=== PATIENT | female | born 1950 | race Native Hawaiian/Other Pacific Islander ===

== ENCOUNTER 2020-03-30 10:11 | Day surgery (SDC) | payer MEDICARE, BC ==
[~2020-03-30] VITALS: Ht 152.4 cm; Wt 65.9 kg
[~2020-03-30 10:11] MED LIST: ATEN25 PO; BUPR150ER PO; Hair, Skin & N1 EACH PO; LOSA50 PO; Omeprazole20 M1 PO; PANT20 PO; PEPCID20 MG PO; TRAM50 PO; ZOLP5 PO
[2020-03-30] MEDS ORDERED: OMEP20ER PO (10:34)
[2020-03-30] MEDS ORDERED: ALLEGRA ALLERG180 MG PO (10:35)
[2020-03-30] MEDS ORDERED: CHLO4 PO (10:35)
--- NOTE | 2020-03-30 12:10 | NUR ---
03/30/20 1210 Dora Lewis 600CC NACL FLUID DEFICIT FROM HYSTEROSCOPY. SURGEON AND ANESTHESIA AWARE.
--- NOTE | 2020-03-30 13:07 | NUR ---
03/30/20 1307 DORA NICOLE PT TO STEP DOWN. VSS ON ROOM AIR. PT WOULD LIKE TO USE RESTROOM, SHE WAS EDUCATED THAT SHE MAY FEEL LIKE SHE NEEDS TO VOID DUE TO THE IRRITATION TO THE [place]RA. SHE WAS ASSISED TO THE BATHROOM AND VOIDED A SMALL AMOUNT OF URINE AND SOME BRIGHT, RED BLOOD. PT THEN BACK TO RECLINER IN STE[place]OWN. PT REPORTS HER VAGINAL AREA IS "VERY SORE" SHE WAS OFFERED BOTH ORAL AND IV PAIN MEDICATION BUT REFUSES DUE TO FEAR ODF NAUSEA. SHE WAS EDUCATED THAT SHE WAS ALREADY GIVEN THIS MEDICINE (IV - INTRA OPERATIVELY) WITH NO NAUSEA POST OPERATIVELY BUT AGAIN DECLINES. PT EDUCATED ON DC TEACHING AND ALL QUESTIONS ASKED AND ANSWERED. IV DC'D AND PT TO VEHICLE VIA
== END 2020-03-30 13:04 | disposition home or self-care (01) ==
LOC: ORSCSDS 10:11
PROVIDERS: Obstetrics & Gynecology
PROC: 0UDB8ZX Extraction of Endometrium, Via Natural or Artificial Opening Endoscopic, Diagnostic (ICD-10-PCS; principal; 2020-03-30 11:15)
DX: N95.0 Postmenopausal bleeding (principal); N85.00 Endometrial hyperplasia, unspecified; I10 Essential (primary) hypertension; E03.9 Hypothyroidism, unspecified; M32.9 Systemic lupus erythematosus, unspecified; Z79.899 Other long term (current) drug therapy; Z87.891 Personal history of nicotine dependence
CPT/HCPCS: 88305; J0690; J1100; J1885; J2250; J2405; J2704; J3010; J7120

== ENCOUNTER 2021-06-28 15:30 | Inpatient (IN) | payer MEDICARE, BC ==
[~2021-06-28] VITALS: Ht 152.4 cm; Wt 64.1 kg
[~2021-06-28 15:30] MED LIST changes: +ALLEGRA ALLERG180 MG PO; +CHLO4 PO; +OMEP20ER PO
[2021-06-28 16:09] LABS: BASOPHILS ABSOLUTE AUTO 0.04 K/mm3 (0.00-0.23); BASOPHILS PERCENT AUTO 1 % (0-2); EOSINOPHILS ABSOLUTE AUTO 0.24 K/mm3 (0.00-0.68); EOSINOPHILS PERCENT AUTO 3 % (0-6); Hematocrit 43.3 % (33.0-51.0); Hemoglobin 14.1 g/dL (11.5-16.0); IMMATURE GRAN ABSOLUTE AUTO 0.03 K/mm3 (0.00-0.10); IMMATURE GRAN PERCENT AUTO 0 % (0-1); LYMPHOCYTES PERCENT AUTO 36 % (21-46); MONOCYTES ABSOLUTE AUTO 0.88 K/mm3 (0.16-1.47); MONOCYTES PERCENT AUTO 11 % (4-13); Mean Corpuscular HGB 28.8 pg (26.0-34.0); Mean Corpuscular HGB Conc 32.6 g/dL (31.5-36.5); Mean Corpuscular Volume 88 fL (80-100); Mean Platelet Volume 10.6 fL (9.1-12.4); NEUTROPHILS ABSOLUTE AUTO 4.03 K/mm3 (1.96-9.15); NEUTROPHILS PERCENT AUTO 50 % (41-73); Platelet Count 311 K/mm3 (150-400); RDW Coefficient Variation 12.7 % (11.7-14.2); RDW Standard Deviation 41.3 fL (35.1-46.3); White Blood Cell Count 8.12 K/mm3 (4.00-11.30)
[2021-06-28 16:28] LABS: Alanine Aminotransfer (ALT/SGP 115 U/L (12-78); Albumin, Blood 3.9 g/dL (3.4-5.0); Alk Phos 80 U/L (50-136); Anion Gap 6 mmol/L (6-16); Aspartate Aminotrans (AST/SGOT 95 U/L (12-37); Bilirubin, Total 0.4 mg/dL (0.1-1.0); Blood Urea Nitrogen 17 mg/dL (8-24); CO2, Blood 25 mmol/L (21-32); Calcium, Blood 9.3 mg/dL (8.5-10.1); Chloride, Blood 106 mmol/L (98-108); Creatinine, Blood 0.63 mg/dL (0.40-1.00); Glomerular Filtration Rate >60 (60-); Glucose, Blood 131 mg/dL (70-99); Potassium, Blood 4.2 mmol/L (3.5-5.5); Sodium, Blood 137 mmol/L (136-145); Total Protein, Blood 7.9 g/dL (6.4-8.2)
[2021-06-28 21:08] LABS: Magnesium, Blood 1.8 mg/dL (1.6-2.4)
[2021-06-29] MEDS ORDERED: METF500C PO (00:07)
[2021-06-29] MEDS ORDERED: Oxybutynin Chlor5 M1 PO (00:08)
--- NOTE | 2021-06-29 06:00 | NUR ---
SHIFT SUMMARY ASSUMED CARE OF PT AT 2300. PT IS A/OX4. HEART SOUNDS REGULAR. WHILE PT IS AWAKE OR WALKING, HR IS IN THE 60-80 BPM RANGE BUT WHILE SHE SLEEPS PT TOUCHES DOWN TO 40BPM. PT IS ASYMPTOMATIC. LUNG SOUNDS CLEAR. PT IS A 1P SBA TO BATHROOM. PT HAS BEEN NPO SINCE 99. PT HOPES TO GET PACEMAKER DONE TODAY SO SHE CAN GO HOME TOMORROW. PT REFUSED TO WEAR CPAP THIS NOC BEUCASE SHE WANTS TO USE HER OWN AND SHE DID NOT GET TO SLEEP MUCH ANYWAYS.
--- NOTE | 2021-06-29 16:12 | NUR ---
SHIFT SUMMARY Pt is a/o x 4 with no c/o pain. She denies chaest pain/dizziness or weakness. Per Dr Willis she was ambulated in her room and her heart rate did increase with walking and this info was called to him. Even when her heart rate dips down into the 40's she remains asymptomatic. Doctors decided agaisnt a pacemaker this morning and opted to monitor her for the night and she agreed to this plan. She has a good appetite. She is voiding on her own in the bathroom with only line management. She is up watching TV and has her call light in reach.
[2021-06-30 04:25] LABS: Alanine Aminotransfer (ALT/SGP 98 U/L (12-78); Albumin, Blood 3.5 g/dL (3.4-5.0); Albumin/Globulin Ratio 0.9 (0.8-1.8); Alk Phos 72 U/L (50-136); Anion Gap 7 mmol/L (6-16); Aspartate Aminotrans (AST/SGOT 63 U/L (12-37); Bilirubin, Total 0.7 mg/dL (0.1-1.0); Blood Urea Nitrogen 18 mg/dL (8-24); Bun/Creatinine Ratio 28.1 (12.0-20.0); CO2, Blood 26 mmol/L (21-32); Chloride, Blood 107 mmol/L (98-108); Creatinine, Blood 0.64 mg/dL (0.40-1.00); Globulin, Blood 3.8 g/dL (2.2-4.0); Glomerular Filtration Rate >60 (60-); Glucose, Blood 121 mg/dL (70-99); Phosphorus, Blood 4.2 mg/dL (2.5-4.9); Potassium, Blood 3.9 mmol/L (3.5-5.5); Sodium, Blood 140 mmol/L (136-145); Total Protein, Blood 7.3 g/dL (6.4-8.2)
--- NOTE | 2021-06-30 05:42 | NUR ---
SHIFT SUMMARY ASSUMED CARE OF PT AT 1900. PT IS A/OX4. HEART SOUNDS REGULAR. PT HR RANGED FROM THE 40'S WHILE SLEEPING TO 80S WHILE AWAKE. PT WORE HER CPAP T/O THE NIGHT. DURING 0 VITALS CHECK. PT BP ON THE R ARM WAS 20 SYSTOLIC BUT WAS 60S SYSTOLIC ON THE L ARM. PT IS ASYMTOMATIC, DISCUSSED CARE WITH CHARGE NURSE AND STATED TO PASS INFORMATION ON TO DAYSHIFT DOCTOR/NURSE FOR EVALUTATION.
--- NOTE | 2021-06-30 16:17 | NUR ---
SHIFT SUMMARY Pt is a/o x 4 with no c/o pain. She denies any dizziness or SOB. Dr Courtney asked that we get her up and walk her around while monitoring her heart rhythm and she did then report that she had some mild SOB and perspiration, she reported this to Dr Willis and based on her rhythm he is recommending she stay for the weekend and have a pace maker placed on friday. She agreed to this plan and asked that in the meantime the Dr adjust her meds since her BP has been elevated. Dr Willis wrote orders and she was medicated per emar. She has been independent in her room. She is able to make her needs known and uses her call light when needed.
--- NOTE | 2021-07-01 06:05 | NUR ---
SHIFT SUMMARY ASSUMED CARE OF PT AT 1900. PT IS A/OS4. HEART SOUNDS REGULAR. TELE SHOWS 2 DEGREE HB. PT HAD NO NEW COMPLAINTS. PT SLEPT T/O THE NIGHT WITH HER CPAP. PT BP WAS ELEVATED ON THE R ARM AGAIN BUT BETTER ON THE LEFT. PT RATE WAS BETWEEN 40-80 BPM.
--- NOTE | 2021-07-01 16:47 | NUR ---
SHIFT SUMMARY Pt is a/o x 4. She denies any pain. She is very pleasant and independent in her room. She continues to get up and walk around in her room every hour as that is the schedule she has made for herself to keep moving. She did have a run of a ventricular rhythm today and a strip was printed and Dr Willis was notified. No changes to her orders or the plan were made. She is scheduled to get her pacemaker tomorrow morning and should be NPO at midnight tonight for that procedure. She is able to make her needs known and calls for help when needed.
--- NOTE | 2021-07-02 05:31 | NUR ---
SHIFT SUMMARY PT IS ALERT AND ORIENTED. PT IS ADLIB IN ROOM. SHE DENIES CHEST PAIN AND REPORTS SOME SOB WITH EXERTION. VITALS ARE STABLE AND IS ON ROOM AIR WITH CPAP AT NIGHT DURING SLEEP. BP'S HAVE DIFFERENT READING IN EACH ARM. PT HAS BEEN NPO AT MIDNIGHT AND IS TOLERATING WELL. CALL LIGHT IS WITHIN REACH.
--- NOTE | 2021-07-02 16:45 | NUR ---
Shift Summary Pt remains A&Ox4. VSS. Afebrile. C/o pacer insertion site pain- Tylenol x1 with adequate control of pain per pt. AUO. BMx1. Tolerating current diet. Pacer placed. Frequent rounds to ensure pt safety. Encouraged pt to reposition q2hrs and pressure points offloaded to prevent pressure ulcers. Pt in no apparent distress at this time. Will continue to monitor until transfer of care to oncoming RN.
--- NOTE | 2021-07-02 21:33 | NUR ---
Assumed care 1900. VSS on RA. Pain reported in left side of chest where pacer was placed today. Ice pack applied and will give tylenol when due. Pt refused any other pain meds besides tylenol. Tele: v paced in 80s. Will continue to monitor.
--- NOTE | 2021-07-03 04:15 | NUR ---
Tax Consultant Note: Pt is A&O, pleasant with cares. VSS on RA and CPAP when sleepings. Tele: V paced in 80s, up to 90-100s when up to bathroom. Left arm restriction maintained. Sling in place and ice pack applied for pain and swelling. Tylenol and ice pack for pain relief overnight worked well for pt. Dressing over incision site clean dry and intact. No chest pain or SOB overnight.
[2021-07-03] MEDS ORDERED: AMLO5 PO (12:36)
[2021-07-03] MEDS ORDERED: ROXICODONE5 MG PO (12:37)
--- NOTE | 2021-07-03 13:01 | NUR ---
Discharge Summary Pt discharged home. Discharge instructions provided, pt verbalized understanding. Meditronic pacer device sent home with pt, previously instructed on how to use device by [facility] supervisor. All other personal belongings including home cpap sent with pt. No apparent distress noted at time of discharge.
== END 2021-07-03 14:04 | disposition home or self-care (01) | DRG 244 ==
LOC: ER 15:30 → PCU 21:52
PROVIDERS: Emergency Medicine; Internal Medicine; Physician Assistant; ADMIT Internal Medicine
PROC: 0JH606Z Insertion of Pacemaker, Dual Chamber into Chest Subcutaneous Tissue and Fascia, Open Approach (ICD-10-PCS; principal; 2021-07-02)
PROC: 02HK3JZ Insertion of Pacemaker Lead into Right Ventricle, Percutaneous Approach (ICD-10-PCS; 2021-07-02)
PROC: 02H63JZ Insertion of Pacemaker Lead into Right Atrium, Percutaneous Approach (ICD-10-PCS; 2021-07-02)
DX: I49.5 Sick sinus syndrome (principal); I44.1 Atrioventricular block, second degree; E11.9 Type 2 diabetes mellitus without complications; R94.5 Abnormal results of liver function studies; K21.9 Gastro-esophageal reflux disease without esophagitis; K58.9 Irritable bowel syndrome, unspecified; E03.9 Hypothyroidism, unspecified; Z90.49 Acquired absence of other specified parts of digestive tract; Z96.641 Presence of right artificial hip joint; Z87.891 Personal history of nicotine dependence; Z98.890 Other specified postprocedural states; Z79.899 Other long term (current) drug therapy; E66.9 Obesity, unspecified; G47.33 Obstructive sleep apnea (adult) (pediatric); R32 Unspecified urinary incontinence; Z68.26 Body mass index [BMI] 26.0-26.9, adult
CPT/HCPCS: 33208; 36415; 71045; 71046; 80053; 82947; 83735; 84100; 84443; 84484; 85025; 93005; 93010; 93306; 94660; 94762; 99152; 99153; 99285-25; A9270; C1785; C1894; C1898; G0378; J0690; J1580; J1644; J2250; J3010; J7030; J7040; J7120

== ENCOUNTER 2022-01-03 10:25 | Observation (INO) | payer MEDICARE, BC ==
[~2022-01-03] VITALS: Ht 152.4 cm; Wt 56.4 kg
[~2022-01-03 10:25] MED LIST changes: +AMLO5 PO; +METF500C PO; +Oxybutynin Chlor5 M1 PO; +ROXICODONE5 MG PO
[2022-01-03 10:58] LABS: BASOPHILS ABSOLUTE AUTO 0.04 K/mm3 (0.00-0.23); BASOPHILS PERCENT AUTO 1 % (0-2); EOSINOPHILS ABSOLUTE AUTO 0.08 K/mm3 (0.00-0.68); EOSINOPHILS PERCENT AUTO 1 % (0-6); Hematocrit 47.7 % (33.0-51.0); Hemoglobin 15.7 g/dL (11.5-16.0); IMMATURE GRAN ABSOLUTE AUTO 0.02 K/mm3 (0.00-0.10); IMMATURE GRAN PERCENT AUTO 0 % (0-1); LYMPHOCYTES PERCENT AUTO 32 % (21-46); MONOCYTES ABSOLUTE AUTO 0.46 K/mm3 (0.16-1.47); MONOCYTES PERCENT AUTO 7 % (4-13); Mean Corpuscular HGB 28.6 pg (26.0-34.0); Mean Corpuscular HGB Conc 32.9 g/dL (31.5-36.5); Mean Corpuscular Volume 87 fL (80-100); Mean Platelet Volume 9.8 fL (9.1-12.4); NEUTROPHILS ABSOLUTE AUTO 4.15 K/mm3 (1.96-9.15); NEUTROPHILS PERCENT AUTO 60 % (41-73); Platelet Count 324 K/mm3 (150-400); RDW Coefficient Variation 12.4 % (11.7-14.2); RDW Standard Deviation 39.2 fL (35.1-46.3); Red Blood Cell Count 5.49 M/mm3 (3.80-5.20); White Blood Cell Count 6.95 K/mm3 (4.00-11.30)
[2022-01-03] MEDS ORDERED: ALLEGRA ALLERG180 MG PO (11:00)
[2022-01-03 11:22] LABS: Albumin, Blood 4.1 g/dL (3.4-5.0); Albumin/Globulin Ratio 0.9 (0.8-1.8); Bilirubin, Total 0.7 mg/dL (0.1-1.0); Bun/Creatinine Ratio 29.6 (12.0-20.0); Calcium, Blood 9.9 mg/dL (8.5-10.1); Creatinine, Blood 0.51 mg/dL (0.40-1.00); Globulin, Blood 4.7 g/dL (2.2-4.0); Potassium, Blood 4.1 mmol/L (3.5-5.5); Total Protein, Blood 8.8 g/dL (6.4-8.2)
--- NOTE | 2022-01-03 16:20 | NUR ---
PATIENT ARRIVED TO UNIT VIA GURNEY AND WAS TRANFERRED WITH HEAVY SINGLE PERSON ASSIST. VS COLLECTED AND WNL, NO DISTRESS NOTED, PATIENT APPEARS COMFORTABLE AND ACCLIMATED TO THE ROOM, CALL WITHIN REACH AND PATIENT DEMONSTRATES ABILITY TO CALL FOR ASSISTANCE PRN. PLACED ON TELEMETRY MONITORING.
--- NOTE | 2022-01-04 05:25 | NUR ---
SHIFT SUMMARY PATIENT DENIES PAIN, NAUSEA, AND SHORTNESS OF BREATH. PATIENT IS ON BEDREST UNTIL PT/OT EVAL. PATIENT IS NPO EXCEPT FOR WATER AND ICE CHIPS, PENDING ST EVAL. PATIENT WEAR CPAP AT NIGHT, NOTIFIED, NEW ORDERS FOR CPAP. PATIENT TOELRATED CPAP WELL. PATIENT HAS LEFT SIDE DEFICIT. SLIGHT LEFT FACIAL DROOP. PATIENT IS PLEASANT AND COOPERATIVE WITH CARE.
[2022-01-04 05:57] LABS: CHOL/HDL RATIO 5.5; Cholesterol 216 mg/dL (50-200); HDL Cholesterol 39 mg/dL (>39); LDL/HDL RATIO 3.7; Low Density Lipoprotein Chol 144 mg/dL (0-110); Triglycerides 165 mg/dL (30-160); Very Low Density Lipoprot Chol 33 mg/dL (6-32)
--- NOTE | 2022-01-04 11:25 | NUR ---
CALLED [facility], SPOKE TO ROBERT TO FOLLOW UP ON PACEMAKER INTERROGATION ORDERED YESTERDAY. THEY HAVE PERSONNEL IN HOUSE TODAY AND SHE WILL FORWARD A MESSAGE TO THEM.
--- NOTE | 2022-01-04 17:30 | NUR ---
SHIFT SUMMARY: NO ACUTE EVENTS. STAMP PRESSER EVALUATED PT THIS MORNING, ADVANCED DIET TO REGULAR, TOLERATING WELL. L HAND AND LEG HAVE SLIGHT RESIDUAL WEAKNESS. PACEMAKER WAS INTERROGATED AT BEDSIDE, WAS REPORTED TO BE WNL. NO EVENTS ON TELEMETRY, SR 80'S. GETTING UP TO BSC WITH SBA, USING FWW. ASKING APPROPRIATE QUESTIONS REGARDING HER ILLNESS. STARTED ON PLAVIX. SPOUSE VISITED THIS AFTERNOON. POSSIBLE D/C HOME TOMORROW.
--- NOTE | 2022-01-05 04:04 | NUR ---
SHIFT SUMMARY NO OVERNIGHT EVENTS. PER PT L SIDE WEAKNESS RESOLVED, NOTED MILD LUE WEAKNESS. AMBULATING TO BATHROOM SBA FWW, STEADY ON FEET. DENIES PAIN, SOB, N/V. BG WELL CONTROLLED. EDUCATED TO USE CALL LIGHT. WILL CONTINUE TO MONITOR.
[2022-01-05] MEDS ORDERED: ATOR20 PO (13:36)
[2022-01-05] MEDS ORDERED: CLOP75 PO (13:37)
[2022-01-05] MEDS ORDERED: ASPI81CH PO (13:38)
--- NOTE | 2022-01-05 15:13 | NUR ---
PATIENT DISCHARGED TO HOME ACCOMPANIED BY SPOUSE. TELMETRY AND IV SALINE LOCK REMOVED WITHOUT INCIDENT. VERBALIZED UNDERSTANDING OF D/C INSTRUCTIONS. FWW HEIGHT APPROPIATE FOR HER HEIGHT, DID NOT ADJUST. GIVEN HARD RX OUTPATIENT PHYSICAL THERAPY REFERRAL. OFF UNIT VIA AT 1424. NO PERSONAL BELONGINGS LEFT BEHIND IN ROOM.
== END 2022-01-05 14:25 | disposition home or self-care (01) ==
LOC: ER 10:25 → MEDS 13:32 → ER 13:32 → MEDS 13:33
PROVIDERS: Nurse Practitioner Acute Care; Student in an Organized Health Care Education/Training Program; ADMIT Internal Medicine
DX: I63.9 Cerebral infarction, unspecified (principal); R47.1 Dysarthria and anarthria; G81.94 Hemiplegia, unspecified affecting left nondominant side; R29.810 Facial weakness; E11.9 Type 2 diabetes mellitus without complications; I10 Essential (primary) hypertension; K21.9 Gastro-esophageal reflux disease without esophagitis; G47.33 Obstructive sleep apnea (adult) (pediatric); E78.5 Hyperlipidemia, unspecified; E03.9 Hypothyroidism, unspecified; N32.81 Overactive bladder; R74.01 Elevation of levels of liver transaminase levels; Z95.0 Presence of cardiac pacemaker; Z79.84 Long term (current) use of oral hypoglycemic drugs; Z79.899 Other long term (current) drug therapy; Z96.641 Presence of right artificial hip joint; Z87.891 Personal history of nicotine dependence
CPT/HCPCS: 36415; 70450; 70496; 70498; 80053; 80061; 82947; 83036; 85025; 92610; 93005; 93010; 93280; 93306; 94660; 94762; 96372; 97116; 97161; 97165; 97535; A9270; G0378; J1650; J2405; J7030; Q9967